=== PATIENT | male | born 1985 | race Caucasian/White ===

== ENCOUNTER → 2025-01-17 14:21 | Outpatient (BNVA) | payer SELFPAY | PROVIDERS: Visit Provider Emergency Medicine | DX: S13.4XXA Sprain of ligaments of cervical spine, initial encounter (principal); V89.0XXA Person injured in unspecified motor-vehicle accident, nontraffic, initial encounter; Z02.79 Encounter for issue of other medical certificate | CPT/HCPCS: 99202 ==